=== PATIENT | female | born 1940 | race Caucasian/White ===

== ENCOUNTER 2016-09-29 21:27 | Emergency (ER) | payer MEDICARE, OTHER ==
--- NOTE | 2016-09-30 00:34 | ED CLINICAL REPORT ---
Clinical Report - Physicians/Mid Levels [facility] [address] [place] [place] [address] 09/29/2016 21:31 Patient: MAKSIM MAR Time Seen: 21:35; initial patient contact. Arrived- By ambulance. Historian- patient. HISTORY OF PRESENT ILLNESS Chief Complaint: BACK PAIN. Onset- about 2 days ago and it is still present. It was abrupt in onset and has been intermittent. Modifying factors- worsened by bending over and coughing. Not relieved by taking prescription medications. Not relieved by anything. It is described as being moderate in degree. The quality is noted to be aching. No radiation. No bladder dysfunction, bowel dysfunction, sensory loss or motor loss. Patient notes a recent injury (Surgery, Lumbar 2 days ago.). Patient denies injury to the head or neck. Similar symptoms previously: None. Recent medical care: The patient was seen recently and hospitalized (back surgery). REVIEW OF SYSTEMS No fever, chills, difficulty with urination, vomiting or diarrhea. She has had nausea. All systems otherwise negative, except as recorded above. PAST HISTORY Asthma. Hypertension. ADDITIONAL SURGERIES: Back Surgery. SOCIAL HISTORY Never smoker. No alcohol use or drug use. ADDITIONAL NOTES The nursing notes have been reviewed. PHYSICAL EXAM Appearance: Alert. No acute distress. Eyes: No pale conjunctivae. ENT: No pharyngeal erythema. (Dry mucus membranes). CVS: Normal heart rate and rhythm. Heart sounds normal. Respiratory: No respiratory distress. Breath sounds normal. Abdomen: No visible injury. Soft and nontender. Bowel sounds normal. Back: Mild soft tissue tenderness (incisional tenderness). Skin: Skin warm and dry. Normal skin color. (Incision w/out erythema or discharge). Neuro: Oriented X 3. No motor deficit. No sensory deficit. PROGRESS AND PROCEDURES Consult obtained from neurosurgery. call returned 00:10 Dr. Woodward. Gave pt Decadron intraoperatively which is likely causing the leukocytosis, no need for abx. Disposition: Discharged home in good and improved condition. Condition: good. CLINICAL IMPRESSION Acute lumbar back pain associated with degenerative disc disease of the lumbar spine. No radiculopathy or neurological deficit. INSTRUCTIONS Your Current Medications: CONTINUE TAKING THE FOLLOWING MEDICATIONS: Advair Diskus Inhalation. Benazepril HCl Oral : Tablet 40 mg. Doxazosin Mesylate Oral : Tablet 8 mg. Hydrochlorothiazide Oral : Tablet 25 mg. Ibuprofen Oral : Tablet 800 mg, 1 tablet 3x a day, prn. OxyCODONE HCl Oral : Tablet 5 mg. Sildenafil Citrate Oral : Tablet 20 mg. Prescription Medications: Hydrocodone/APAP 5mg / 325mg: take 1-2 orally every 6 hours as needed for pain. Dispense twenty (20). No refill. Follow-up: Follow up with your doctor as scheduled. Blood pressure screening was not performed during this visit because the patient has an active diagnosis of hypertension. (Electronically signed by Sin Anderson Dr. 09/30/2016 4:52)
--- NOTE | 2016-09-30 00:34 | ED NURSING NOTES ---
Clinical Report - Nurses [facility] [address] [place] [address] 09/29/2016 21:31 [id number] Triage time 21:30 Sep 29 2016. Acuity: LEVEL 2. Chief Complaint: BACK PAIN and (Surgery Sunday09/27/16). 21:50 09/29/16. SEPSIS SCREEN: Sepsis Screen. Negative (no infection suspected/documented). RENAN COMA SCORE: Fords Coma Scale: 15- eyes open spontaneously (4); best verbal response- oriented x 4 (5); best motor response- obeys commands (6). --21:50 Regi Villalba R.N. 21:33 09/29/16. BP: 128/50 (regular adult cuff) taken on the right arm. HR: 85. RR: 18. O2 saturation: 96% on nasal cannula at 2 liters/minute. Temp: 99.2 F (oral). Pain level now: 11/06. --21:50 Regi Villalba R.N. Weight: 88.9 kg stated. Height/Length: 67 inches Per Patient. BMI: 30.7. --21:35 Regi Villalba R.N. Medications OxyCODONE HCl Oral (Tablet 5 mg). --21:38 Regi Villalba R.N. Doxazosin Mesylate Oral (Tablet 8 mg). --21:39 Regi Villalba R.N. Advair Diskus Inhalation. --21:39 Regi Villalba R.N. Sildenafil Citrate Oral (Tablet 20 mg). --21:41 Regi Villalba R.N. Benazepril HCl Oral (Tablet 40 mg). --21:41 Regi Villalba R.N. Hydrochlorothiazide Oral (Tablet 25 mg). --21:41 Regi Villalba R.N. Ibuprofen Oral (Tablet 800 mg) 1 tablet, 3x a day as needed. --21:42 Villalba, Regi, R.N. Allergies Tramadol. --21:37 Regi Villalba R.N. History Arrived by EMS. Historian: EMS and patient. Accompanied by friend and (Mer). Primary physician (TEO Velasquez). Onset. (Back surgery on Sunday of this week). ( Patient had surgery Sunday, no issues with surgery, pain started "acting up" that night when she got home, pain continued to get worse, today she started getting lethargic, yesterday went pretty well per friend, today around 11AM patient started throwing. Friend says when patient has been up she has came close to falling). She has had weakness and trouble walking. No history of recent trauma. 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 PAST MEDICAL HX: Hypertension. SOCIAL HX: Never smoker. No alcohol use or drug use. No infectious disease exposure. ABUSE ASSESSMENT: No report of abuse. --21:50 Regi Villalba R.N. PROBLEMS: Asthma. Hypertension. --21:43 Regi Villalba R.N. ADDITIONAL SURGERIES: Back Surgery. --21:43 Regi Villalba R.N. Interventions ID band on patient. To treatment room. --21:50 Regi Villalba R.N. PHYSICAL ASSESSMENT 21:50 09/29/16. To room via stretcher. Patient gowned. GENERAL / NEURO / PSYCH: Alert. Oriented X 4. RESPIRATORY: Respirations not labored. Chest nontender. Breath sounds within normal limits. CVS: Normal heart rate and rhythm. Capillary refill less than 2 seconds. GI / : Abdomen soft and nontender. Bowel sounds within normal limits. BACK: Normal inspection of the neck and back. No neck or back tenderness. ROM of neck and back within normal limits. --21:50 Regi Villalba R.N. NURSING PROGRESS NOTES 21:50 09/29/16. The plan of care for this patient has been created. Monitoring of patient in place. Patient gowned. Head of bed elevated. Reassurance given. Two patient identifiers checked. Call light placed in reach. Side rails up x 2. Bed placed in lowest position. Brakes of bed on. Patient ready for evaluation- chart flagged and ED physician notified. --21:50 Regi Villalba R.N. 21:57 09/29/2016 Site #1 started prior to arrival by EMS via IV in the left antecubital space with an 18g angiocath (Started prior to coming in). --22:22 Regi Villalba R.N. 22:22 09/29/2016 Started bag #1 1000 mL IV Fluids IV NS (Saline); bolus of 1000 mL over 1 hour(s) via site #1 via IV pump. Allergies verified and confirmed 5 rights. IV patency established. IV site checked: no pain, redness, or swelling. IV flushed thoroughly pre- and post-medication administration. --22:22 Regi Villalba R.N. 22:22 09/29/2016 Toradol IVP 30 mg given over 1 minute(s) via site #1. Allergies verified and confirmed 5 rights. IV patency established. IV site checked: no pain, redness, or swelling. IV flushed thoroughly pre- and post-medication administration. IVP given by RN. --22:22 Regi Villalba R.N. 22:22 09/29/2016 Zofran (Ondansetron HCl) IVP 4 mg given over 1 minute(s) via site #1. Allergies verified and confirmed 5 rights. IV patency established. IV site checked: no pain, redness, or swelling. IV flushed thoroughly pre- and post-medication administration. IVP given by RN. --22:22 Regi Villalba R.N. ( Friend and son at bedside). --22:23 Regi Villalba R.N. 21:45 09/29/16. BP: 124/50 (regular adult cuff) taken on the right arm. RR: 18. O2 saturation: 97% on nasal cannula at 2 liters/minute. Pain level now: 11/06. --22:44 Regi Villalba R.N. 22:44 09/29/16. BP: 118/45 (regular adult cuff) taken on the right arm. RR: 18. O2 saturation: 96% on nasal cannula at 2 liters/minute. --22:44 Regi Villalba R.N. 22:15 09/29/16. BP: 112/45 (regular adult cuff) taken on the right arm. RR: 16. O2 saturation: 96% on nasal cannula at 2 liters/minute. --22:44 Regi Villalba R.N. 22:44 09/29/16. BP: 110/47 (regular adult cuff) taken on the right arm. RR: 16. O2 saturation: 95% on nasal cannula at 2 liters/minute. --22:45 Regi Villalba R.N. 22:47 09/29/16. HR: 86. RR: 16. O2 saturation: 96% on nasal cannula at 2 liters/minute. Pain level now: 10/07. --22:47 Regi Villalba R.N. 22:48 09/29/16. ( Patient says she is ready to go home now. Informed her Dr Anderson would like to look at surgical wound first. She states her understanding to this). --22:48 Regi Villalba R.N. 22:51 09/29/2016 Toradol IVP Response: no adverse reaction pain is improving. Symptoms have improved the patient feels better. --23:16 Regi Villalba R.N. 22:51 09/29/2016 Zofran IVP Response: no adverse reaction pain is gone now. Symptoms have improved the patient feels better. --23:16 Regi Villalba R.N. 23:00 09/29/16. ( Patients friend came out to speak with me privately stating the patient doesn't remember talking to physician when he was in there.). --23:00 Regi Villalba R.N. 23:01 09/29/16. ( Asked patient orientation questions, she is oriented x 4). --23:01 Regi Villalba R.N. Dressing changed. Applied clean occlusive dressing consisting of Tegaderm and telfa pad, following the application of antibiotic ointment (bacitracin). --23:16 Regi Villalba R.N. 23:16 09/29/2016 IV Fluids IV NS Discontinued: bag #1 completed. Total amount infused: 1000 mL. IV patency established. IV site checked: no pain, redness, or swelling. IV flushed thoroughly. --23:16 Regi Villalba R.N. 22:50 09/29/16. BP: 118/48 (regular adult cuff) taken on the right arm, while sitting. RR: 18. O2 saturation: 98% on nasal cannula at 2 liters/minute. --23:51 Regi Villalba R.N. 23:00 09/29/16. BP: 92/32 (regular adult cuff) taken on the right arm. RR: 18. O2 saturation: 98% on nasal cannula at 2 liters/minute. --23:51 Regi Villalba R.N. 23:15 09/29/16. BP: 108/47 (regular adult cuff) taken on the right arm. RR: 16. O2 saturation: 100% on nasal cannula at 2 liters/minute. --23:52 Regi Villalba R.N. 23:30 09/29/16. BP: 114/44 (regular adult cuff) taken on the right arm, while sitting. RR: 16. O2 saturation: 100% on nasal cannula at 2 liters/minute. --23:52 Regi Villalba R.N. 00:10 09/30/16. ( Will contact surgeon per Dr Wick request. Patient resting quietly, lights dimmed for sleep). --00:10 Regi Villalba R.N. 00:09 09/30/16. BP: 109/44 (regular adult cuff) taken on the right arm, while lying. HR: 74. RR: 18. O2 saturation: 100% on nasal cannula at 2 liters/minute. Temp: 99.1 F (oral). --00:10 Regi Villalba R.N. DISPOSITION / DISCHARGE 00:53 09/30/2016 Site #1 removed upon discharge. Bandaid applied. --01:08 Regi Villalba R.N. Departure time: 55Sep 30 2016. Condition at departure: improved. No learning barriers present. Discharge instructions provided and reviewed with the patient and family. Reviewed medication(s) side effects, precautions, dosing and course information. Prescription(s) given to the patient. Patient and family verbalized understanding. Written instructions provided in Amharic. The patient was discharged by the physician. She was discharged home and accompanied by family and resaw feeder. She left the Emergency Department ambulatory and via private vehicle. [employer] driving. --01:10 Regi Villalba R.N. 01:08 09/30/16. BP: 106/51 (regular adult cuff) taken on the right arm. HR: 73. RR: 16. O2 saturation: 100% on room air. Temp: 99.2 F. Pain level now: 07/07. --01:10 Regi Villalba R.N. Locked/Released at 09/30/2016 1:10 by Regi Villalba R.N.
--- NOTE | 2016-09-30 00:34 | ED ORDER SUMMARY ---
..... Patient: MAKSIM MAR OrderSheet [facility] VisitID: [id number] [address] [place] [address] 76y, F Registration Date/Time: 09/29/2016 ORDER SHEET Weight: 88.9 kg (stated) Allergies: Tramadol GENERAL ORDERS: CBC w Diff Urgent (22:00 09/29/2016 Sophie Monsivais) (Ack 22:16 AMcQuoid ER Tech1) (22:21 JSanders R.N.) CMP Urgent (22:00 09/29/2016 Sophie Monsivais) (Ack 22:16 AMcQuoid ER Tech1) (22:21 JSanders R.N.) UA-Culture if indicated Urgent (22:26 09/29/2016 JSanders R.N. verbal order read back to Sophie Monsivais) (22:26 JSanders R.N.) MEDICATION ORDERS: IV FLUIDS: IV NS : initial bolus none -, then 1000 mL/hr for X1 (NOW) (21:59 09/29/2016 Sophie Monsivais) (Ack 22:01 JSanders R.N.) (22:22 JSanders R.N.) Toradol IV 30 mg (NOW) (22:00 09/29/2016 Sophie Monsivais) (Ack 22:01 JSanders R.N.) (22:22 JSanders R.N.) Zofran IV 4 mg (NOW) (22:00 09/29/2016 Sophie Monsivais) (Ack 22:01 TORYanders R.N.) (22:22 JSanders R.N.) ORDER SHEET NOTES: [Electronically signed by Regi Villalba R.N. (01:10 09/30/2016)] [Electronically signed by Sin Anderson Dr. (04:52 09/30/2016)] [Electronically locked/signed by Regi Villalba R.N. (01:10 09/30/2016)]
--- NOTE | 2016-09-30 00:34 | ED ORDER SUMMARY ---
..... Patient: MAKSIM MAR OrderSheet [facility] VisitID: [id number] [address] [place] [address] 76y, F Registration Date/Time: 09/29/2016 ORDER SHEET Weight: 88.9 kg (stated) Allergies: Tramadol GENERAL ORDERS: CBC w Diff Urgent (22:00 09/29/2016 Sophie Monsivais) (Ack 22:16 AMcQuoid ER Tech1) (22:21 JSanders R.N.) CMP Urgent (22:00 09/29/2016 Sophie Monsivais) (Ack 22:16 AMcQuoid ER Tech1) (22:21 JSanders R.N.) UA-Culture if indicated Urgent (22:26 09/29/2016 JSanders R.N. verbal order read back to Sophie Monsivais) (22:26 JSanders R.N.) MEDICATION ORDERS: IV FLUIDS: IV NS : initial bolus none -, then 1000 mL/hr for X1 (NOW) (21:59 09/29/2016 Sophie Monsivais) (Ack 22:01 JSanders R.N.) (22:22 JSanders R.N.) Toradol IV 30 mg (NOW) (22:00 09/29/2016 Sophie Monsivais) (Ack 22:01 JSanders R.N.) (22:22 JSanders R.N.) Zofran IV 4 mg (NOW) (22:00 09/29/2016 Sophie Monsivais) (Ack 22:01 TORYanders R.N.) (22:22 JSanders R.N.) ORDER SHEET NOTES: [Electronically signed by Regi Villalba R.N. (01:10 09/30/2016)] [Electronically signed by Sin Anderson Dr. (04:52 09/30/2016)] [Electronically locked/signed by Regi Villalba R.N. (01:10 09/30/2016)]
--- NOTE | 2016-09-30 00:34 | ED CLINICAL REPORT ---
Clinical Report - Physicians/Mid Levels [facility] [address] [place] [place] [address] 09/29/2016 21:31 Patient: MAKSIM MAR Time Seen: 21:35; initial patient contact. Arrived- By ambulance. Historian- patient. HISTORY OF PRESENT ILLNESS Chief Complaint: BACK PAIN. Onset- about 2 days ago and it is still present. It was abrupt in onset and has been intermittent. Modifying factors- worsened by bending over and coughing. Not relieved by taking prescription medications. Not relieved by anything. It is described as being moderate in degree. The quality is noted to be aching. No radiation. No bladder dysfunction, bowel dysfunction, sensory loss or motor loss. Patient notes a recent injury (Surgery, Lumbar 2 days ago.). Patient denies injury to the head or neck. Similar symptoms previously: None. Recent medical care: The patient was seen recently and hospitalized (back surgery). REVIEW OF SYSTEMS No fever, chills, difficulty with urination, vomiting or diarrhea. She has had nausea. All systems otherwise negative, except as recorded above. PAST HISTORY Asthma. Hypertension. ADDITIONAL SURGERIES: Back Surgery. SOCIAL HISTORY Never smoker. No alcohol use or drug use. ADDITIONAL NOTES The nursing notes have been reviewed. PHYSICAL EXAM Appearance: Alert. No acute distress. Eyes: No pale conjunctivae. ENT: No pharyngeal erythema. (Dry mucus membranes). CVS: Normal heart rate and rhythm. Heart sounds normal. Respiratory: No respiratory distress. Breath sounds normal. Abdomen: No visible injury. Soft and nontender. Bowel sounds normal. Back: Mild soft tissue tenderness (incisional tenderness). Skin: Skin warm and dry. Normal skin color. (Incision w/out erythema or discharge). Neuro: Oriented X 3. No motor deficit. No sensory deficit. PROGRESS AND PROCEDURES Consult obtained from neurosurgery. call returned 00:10 Dr. Woodward. Gave pt Decadron intraoperatively which is likely causing the leukocytosis, no need for abx. Disposition: Discharged home in good and improved condition. Condition: good. CLINICAL IMPRESSION Acute lumbar back pain associated with degenerative disc disease of the lumbar spine. No radiculopathy or neurological deficit. INSTRUCTIONS Your Current Medications: CONTINUE TAKING THE FOLLOWING MEDICATIONS: Advair Diskus Inhalation. Benazepril HCl Oral : Tablet 40 mg. Doxazosin Mesylate Oral : Tablet 8 mg. Hydrochlorothiazide Oral : Tablet 25 mg. Ibuprofen Oral : Tablet 800 mg, 1 tablet 3x a day, prn. OxyCODONE HCl Oral : Tablet 5 mg. Sildenafil Citrate Oral : Tablet 20 mg. Prescription Medications: Hydrocodone/APAP 5mg / 325mg: take 1-2 orally every 6 hours as needed for pain. Dispense twenty (20). No refill. Follow-up: Follow up with your doctor as scheduled. Blood pressure screening was not performed during this visit because the patient has an active diagnosis of hypertension. (Electronically signed by Sin Anderson Dr. 09/30/2016 4:52)
--- NOTE | 2016-09-30 04:52 | ED MED RECONCILIATION SUMMARY ---
Patient: MAKSIM MAR Medication Reconciliation Report [facility] VisitID: [id number] [address] [place] [address] 76y, F Registration Date/Time: 09/29/2016 Weight: 88.9 kg Height/Length: 67 in. BMI: 30.7 ALLERGIES: Tramadol The patient's Home Medications are listed below: CONTINUE TAKING THE FOLLOWING MEDICATIONS: Advair Diskus Inhalation Benazepril HCl Oral (40 mg) Doxazosin Mesylate Oral (8 mg) Hydrochlorothiazide Oral (25 mg) Ibuprofen Oral (800 mg) 1 tablet, 3x a day OxyCODONE HCl Oral (5 mg) Sildenafil Citrate Oral (20 mg) The source(s) of the original Home Medication information: Not obtained. The following Medications were given to the patient in the Emergency Department: IV NS IV Fluids bolus 1000 mL over 1 hour(s), administered: 09/29/2016 10:22:00 PM Toradol [IVP] IVP 30 mg, administered: 09/29/2016 10:22:00 PM Zofran [IVP] IVP 4 mg, administered: 09/29/2016 10:22:00 PM The following Medications were prescribed to the patient: Hydrocodone/APAP 5mg / 325mg: take 1-2 orally every 6 hours as needed for pain. Dispense twenty (20). No refill. -- Sin Anderson Dr.
--- NOTE | 2016-09-30 04:52 | ED MED RECONCILIATION SUMMARY ---
Patient: MAKSIM MAR Medication Reconciliation Report [facility] VisitID: [id number] [address] [place] [address] 76y, F Registration Date/Time: 09/29/2016 Weight: 88.9 kg Height/Length: 67 in. BMI: 30.7 ALLERGIES: Tramadol The patient's Home Medications are listed below: CONTINUE TAKING THE FOLLOWING MEDICATIONS: Advair Diskus Inhalation Benazepril HCl Oral (40 mg) Doxazosin Mesylate Oral (8 mg) Hydrochlorothiazide Oral (25 mg) Ibuprofen Oral (800 mg) 1 tablet, 3x a day OxyCODONE HCl Oral (5 mg) Sildenafil Citrate Oral (20 mg) The source(s) of the original Home Medication information: Not obtained. The following Medications were given to the patient in the Emergency Department: IV NS IV Fluids bolus 1000 mL over 1 hour(s), administered: 09/29/2016 10:22:00 PM Toradol [IVP] IVP 30 mg, administered: 09/29/2016 10:22:00 PM Zofran [IVP] IVP 4 mg, administered: 09/29/2016 10:22:00 PM The following Medications were prescribed to the patient: Hydrocodone/APAP 5mg / 325mg: take 1-2 orally every 6 hours as needed for pain. Dispense twenty (20). No refill. -- Sin Anderson Dr.
--- NOTE | 2016-09-30 04:52 | ED MAR SUMMARY ---
..... Medication Administration Record [facility] [address] [place] [address] Patient: MAKSIM MAR Visit ID: [id number] 76y, F Weight: 88.9 kg Height/Length: 67 in BMI: 30.7 ALLERGIES: Tramadol Start 22:22 09/29/2016 Regi Villalba R.N., Stop 23:16 09/29/2016 Regi Villalba R.N. Medication Administered: IV NS (SALINE), Dose: IV Fluids, Bolus: 1000 mL over 1 hour(s), Dispensed: 1000 mL bag, Site: #1 left AC. Medication Ordered: IV NS : initial bolus none -, then 1000 mL/hr for X1 (NOW). Given 22:09/29/2016 Regi Villalba R.N. Medication Administered: TORADOL [IVP], Dose: 30 mg IVP over 1 minute(s), Site: #1 left AC. Medication Ordered: Toradol IV 30 mg (NOW). Given 22:09/29/2016 Regi Villalba R.N. Medication Administered: ZOFRAN [IVP] (ONDANSETRON HCL), Dose: 4 mg IVP over 1 minute(s), Site: #1 left AC. Medication Ordered: Zofran IV 4 mg (NOW).
--- NOTE | 2016-09-30 04:52 | ED DISCHARGE INSTRUCTIONS ---
Patient: MAKSIM MAR General Instructions [facility] VisitID: [id number] [address] [place] [address] 76y, F Registration Date/Time: 09/29/2016 Acute lumbar back pain associated with degenerative disc disease of the lumbar spine. No radiculopathy or neurological deficit. INSTRUCTIONS Your Current Medications: CONTINUE TAKING THE FOLLOWING MEDICATIONS: Advair Diskus Inhalation. Benazepril HCl Oral : Tablet 40 mg. Doxazosin Mesylate Oral : Tablet 8 mg. Hydrochlorothiazide Oral : Tablet 25 mg. Ibuprofen Oral : Tablet 800 mg, 1 tablet 3x a day, prn. OxyCODONE HCl Oral : Tablet 5 mg. Sildenafil Citrate Oral : Tablet 20 mg. Prescription Medications: Hydrocodone/APAP 5mg / 325mg: take 1-2 orally every 6 hours as needed for pain. Dispense twenty (20). No refill. Follow-up: Follow up with your doctor as scheduled. Blood pressure screening was not performed during this visit because the patient has an active diagnosis of hypertension. ADDITIONAL INFORMATION Back Pain [Acute Or Chronic] Back pain is usually caused by an injury to the muscles or ligaments of the spine. Sometimes the disks that separate each bone in the spine may bulge and cause pain by pressing on a nearby nerve. Back pain may also appear after a sudden twisting/bending force (such as in a car accident), after a simple awkward movement, or lifting something heavy with poor body positioning. In either case, muscle spasm is often present and adds to the pain. Acute back pain usually gets better in one to two weeks. Back pain related to disk disease, arthritis in the spinal joints or spinal stenosis (narrowing of the spinal canal) can become chronic and last for months or years. Unless you had a physical injury (for example, a car accident or fall) X-rays are usually not ordered for the initial evaluation of back pain. If pain continues and does not respond to medical treatment, x-rays and other tests may be performed at a later time. Home Care: You may need to stay in bed the first few days. But, as soon as possible, begin sitting or walking to avoid problems with prolonged bed rest (muscle weakness, worsening back stiffness and pain, blood clots in the legs). When in bed, try to find a position of comfort. A firm mattress is best. Try lying flat on your back with pillows under your knees. You can also try lying on your side with your knees bent up towards your chest and a pillow between your knees. Avoid prolonged sitting. This puts more stress on the lower back than standing or walking. During the first two days after injury, apply an ICE PACK to the painful area for 20 minutes every 2-4 hours. This will reduce swelling and pain. HEAT (hot shower, hot bath or heating pad) works well for muscle spasm. You can start with ice, then switch to heat after two days. Some patients feel best alternating ice and heat treatments. Use the one method that feels the best to you. You may use acetaminophen (Tylenol) or ibuprofen (Motrin, Advil) to control pain, unless another pain medicine was prescribed. [NOTE: If you have chronic liver or kidney disease or ever had a stomach ulcer or GI bleeding, talk with your doctor before using these medicines.] Be aware of safe lifting methods and do not lift anything over 15 pounds until all the pain is gone. Follow Up with your doctor or this facility if your symptoms do not start to improve after one week. Physical therapy may be needed. [NOTE: If X-rays were taken, they will be reviewed by a radiologist. You will be notified of any new findings that may affect your care.] Get Prompt Medical Attention if any of the following occur: Pain becomes worse or spreads to your legs Weakness or numbness in one or both legs Loss of bowel or bladder control Numbness in the groin or genital area Hydrocodone Bitartrate, Acetaminophen Oral tablet What is this medicine? ACETAMINOPHEN; HYDROCODONE (a set a MASOOD daxa fen; neisha droe KOE done) is a pain reliever. It is used to treat mild to moderate pain. How should I use this medicine? Take this medicine by mouth. Swallow it with a full glass of water. Follow the directions on the prescription label. If the medicine upsets your stomach, take the medicine with food or milk. Do not take more than you are told to take. Talk to your greens tier regarding the use of this medicine in children. This medicine is not approved for use in children. What side effects may I notice from receiving this medicine? Side effects that you should report to your doctor or health gericare aide as soon as possible: allergic reactions like skin rash, itching or hives, swelling of the face, lips, or tongue breathing problems confusion feeling faint or lightheaded, falls stomach pain yellowing of the eyes or skin Side effects that usually do not require medical attention (report to your doctor or health gericare aide if they continue or are bothersome): nausea, vomiting stomach upset What may interact with this medicine? alcohol antihistamines isoniazid medicines for depression, anxiety, or psychotic disturbances medicines for sleep muscle relaxants naltrexone narcotic medicines (opiates) for pain phenobarbital ritonavir tramadol What if I miss a dose? If you miss a dose, take it as soon as you can. If it is almost time for your next dose, take only that dose. Do not take double or extra doses. Where should I keep my medicine? Keep out of the reach of children. This medicine can be abused. Keep your medicine in a safe place to protect it from theft. Do not share this medicine with anyone. Selling or giving away this medicine is dangerous and against the law. Store at room temperature between 15 and 30 degrees C (59 and 86 degrees F). Protect from light. Keep container tightly closed. Throw away any unused medicine after the expiration date. Discard unused medicine and used packaging carefully. Pets and children can be harmed if they find used or lost packages. What should I tell my health care provider before I take this medicine? They need to know if you have any of these conditions: brain tumor Crohn's disease, inflammatory bowel disease, or ulcerative colitis drink more than 3 alcohol-containing drinks per day drug abuse or addiction head injury heart or circulation problems kidney disease or problems going to the bathroom liver disease lung disease, asthma, or breathing problems an unusual or allergic reaction to acetaminophen, hydrocodone, other opioid analgesics, other medicines, foods, dyes, or preservatives or trying to get breast-feeding What should I watch for while using this medicine? Tell your doctor or health gericare aide if your pain does not go away, if it gets worse, or if you have new or a different type of pain. You may develop tolerance to the medicine. Tolerance means that you will need a higher dose of the medicine for pain relief. Tolerance is normal and is expected if you take the medicine for a long time. Do not suddenly stop taking your medicine because you may develop a severe reaction. Your body becomes used to the medicine. This does NOT mean you are addicted. Addiction is a behavior related to getting and using a drug for a non-medical reason. If you have pain, you have a medical reason to take pain medicine. Your doctor will tell you how much medicine to take. If your doctor wants you to stop the medicine, the dose will be slowly lowered over time to avoid any side effects. You may get drowsy or dizzy when you first start taking the medicine or change doses. Do not drive, use machinery, or do anything that may be dangerous until you know how the medicine affects you. Stand or sit up slowly. There are different types of narcotic medicines (opiates) for pain. If you take more than one type at the same time, you may have more side effects. Give your health care provider a list of all medicines you use. Your doctor will tell you how much medicine to take. Do not take more medicine than directed. Call emergency for help if you have problems breathing. The medicine will cause constipation. Try to have a bowel movement at least every 2 to 3 days. If you do not have a bowel movement for 3 days, call your doctor or health gericare aide. Too much acetaminophen can be very dangerous. Do not take Tylenol (acetaminophen) or medicines that contain acetaminophen with this medicine. Many non-prescription medicines contain acetaminophen. Always read the labels carefully. You have been given the following additional information: Back Pain (Acute Or Chronic) Hydrocodone Bitartrate, Acetaminophen Oral tablet (Electronically signed by Sin Anderson Dr. 09/30/2016 4:52)
--- NOTE | 2016-09-30 04:52 | ED MAR SUMMARY ---
..... Medication Administration Record [facility] [address] [place] [address] Patient: MAKSIM MAR Visit ID: [id number] 76y, F Weight: 88.9 kg Height/Length: 67 in BMI: 30.7 ALLERGIES: Tramadol Start 22:22 09/29/2016 Regi Villalba R.N., Stop 23:16 09/29/2016 Regi Villalba R.N. Medication Administered: IV NS (SALINE), Dose: IV Fluids, Bolus: 1000 mL over 1 hour(s), Dispensed: 1000 mL bag, Site: #1 left AC. Medication Ordered: IV NS : initial bolus none -, then 1000 mL/hr for X1 (NOW). Given 22:09/29/2016 Regi Villalba R.N. Medication Administered: TORADOL [IVP], Dose: 30 mg IVP over 1 minute(s), Site: #1 left AC. Medication Ordered: Toradol IV 30 mg (NOW). Given 22:09/29/2016 Regi Villalba R.N. Medication Administered: ZOFRAN [IVP] (ONDANSETRON HCL), Dose: 4 mg IVP over 1 minute(s), Site: #1 left AC. Medication Ordered: Zofran IV 4 mg (NOW).
== END 2016-09-30 00:56 | disposition home or self-care (01) ==
LOC: ED SRH 21:27
DX: M51.36 Other intervertebral disc degeneration, lumbar region (principal); I10 Essential (primary) hypertension; J45.909 Unspecified asthma, uncomplicated; Z79.51 Long term (current) use of inhaled steroids; Z79.899 Other long term (current) drug therapy; Z79.1 Long term (current) use of non-steroidal anti-inflammatories (NSAID)
CPT/HCPCS: 90004; 90100; 95059

== ENCOUNTER 2016-10-10 18:15 | Emergency (ER) | payer MEDICARE, OTHER ==
--- NOTE | 2016-10-10 18:45 | ED CLINICAL REPORT ---
Clinical Report - Physicians/Mid Levels [facility] [address] [place] [address] 10/10/2016 18:15 Patient: MAKSIM MAR Time Seen: 18:28; upon arrival, initial patient contact, initial documentation, patient care assumed. Arrived- By private vehicle. Historian- patient and family. HISTORY OF PRESENT ILLNESS Chief Complaint: SKIN RASH and ITCHING. This started about 2 weeks ago and is still present but is improving. The patient has had a skin rash and itching but not had swelling or trouble swallowing. No difficulty breathing. No cause has been identified (thinks the sutures are what is causing her to itch and to have reaction). The patient was not assessed by EMS prior to arrival. The patient self administered medication prior to arrival including Benadryl (50mg at 1700). Similar symptoms previously: None. Recent medical care: The patient was seen recently in the office. ( had back surgery on 09/27/16, had f/u x2 days ago, surgeon gave her steroid creem to use on the itchy spots, no better). REVIEW OF SYSTEMS No sore throat or chest pain. All systems otherwise negative, except as recorded above. PAST HISTORY See nurses notes. PROBLEMS: Back Pain. Asthma. Hypertension. --18:27 Jennifer Medina R.N. ADDITIONAL SURGERIES: Back Surgery. --18:27 Jennifer Medina R.N. SOCIAL HISTORY Never smoker. No alcohol use or drug use. No recent travel. Is a local resident. FAMILY HISTORY Negative. ADDITIONAL NOTES The nursing notes have been reviewed with agreement regarding the chief complaint, HPI, ROS, PMH and patient medications and allergies. PHYSICAL EXAM Vital Signs: 10/10/2016 18:22 BP: 137/64. HR: 78. RR: 18. O2 saturation: 95%. Temp: 97.7 F. Pain level now: 10/10. Have been reviewed as normal and appear to be correct. Appearance: Alert. Oriented X3. No acute distress. Head and Neck: Normal external inspection. Eyes: Pupils equal, round and reactive to light. ENT: Nose normal. Pharynx normal. Voice normal. Neck: Neck supple. CVS: Normal heart rate and rhythm. Heart sounds normal. Respiratory: No respiratory distress. Breath sounds normal. Skin: Skin warm and dry. Normal skin turgor. Extremities: Normal external inspection. Extremities nontender. Skin: Abnormal skin color. Rash present. No urticaria. (? rash vs all excoriations noted to R inner thigh, excoriations noted on other thigh, R lower leg and L forearm). Neuro: Oriented X 3. No motor deficit. No sensory deficit. PROGRESS AND PROCEDURES Course of Care: 18:28 10/10/16. pt has brad for frequent large quantity of narcs, last rx 10/02 hydrocodone 10mg #112, see report for full details surgical site to back healing well, no s/s of infection, no erythema, no warmth, no swelling, no dc, wound edges approximating well without issues, some epidermal stripping noted from tape or bandage that was on, which is about 6 inches above and sides of surgical site. Patient and family counseled in person regarding the patient's stable condition and diagnosis. Differential Diagnosis: Other possible considerations: anaphylaxis, angioedema, urticaria, hives, allergic reaction, pruritis, med side effect. Above considerations are based on history and physical exam. Differential diagnosis was discussed with patient. Disposition: Discharged home in good and improved condition (18:45). Condition: good and stable. CLINICAL IMPRESSION Generalized pruritus of undetermined cause. INSTRUCTIONS Warnings: GENERAL WARNINGS: Return or contact your physician immediately if your condition worsens or changes unexpectedly, if not improving as expected, or if other problems arise. Specifically return if problem worsens. Prescription Medications: Sofy 180 mg tablets: take 1 orally daily for 10 days. Dispense ten (10). No refills. Atarax 50 mg: Take 1 orally every 6 hours as needed for itching. Dispense twenty (20). No refills. Substitution is permissible. Prednisone 20 mg: take 3 orally every day for 10 days. Dispense sufficient quantity. No refills. Pepcid 40 mg RPD: take 1 orally at bedtime for 10 days. Dispense ten (10). No refills. Follow-up: Follow up with your doctor in about two days even if well. Call for an appointment. Summary of care provided to patient. Understanding of the discharge instructions verbalized by patient. (Electronically signed by Stephanie Moe A.R.N.P. 10/10/2016 21:37)
--- NOTE | 2016-10-10 18:45 | ED NURSING NOTES ---
Clinical Report - Nurses [facility] [address] [place] [address] 10/10/2016 18:15 Patient: MAKSIM MAR TRIAGE Triage time 18:22. Chief Complaint: SKIN RASH. --18:29 Jennifer Medina R.N. 18:22 10/10/16. BP: 137/64. HR: 78. RR: 18. O2 saturation: 95%. Temp: 97.7 F (oral). Pain level now: 02/06. --18:29 Jennifer Medina R.N. SEPSIS SCREEN: Sepsis Screen. Negative (no infection suspected/documented). --18:30 Jennifer Medina R.N. Weight: 92.9 kg stated. Height/Length: 67 inches Per Patient. BMI: 32.1. --18:29 Jennifer Medina R.N. Medications Advair Diskus Inhalation. Benazepril HCl Oral (Tablet 40 mg). Doxazosin Mesylate Oral (Tablet 8 mg). Hydrochlorothiazide Oral (Tablet 25 mg). Ibuprofen Oral (Tablet 800 mg) 1 tablet, 3x a day as needed. OxyCODONE HCl Oral (Tablet 5 mg). Sildenafil Citrate Oral (Tablet 20 mg). --18:26 Jennifer Medina R.N. Vicodin Oral 10 mg, PRN. --18:31 Jennifer Medina R.N. Allergies No Known Drug Allergy. --18:26 Jennifer Medina R.N. History Arrived by private vehicle. Historian: patient. Accompanied by friend. Primary physician (French Echevarria ([facility] ( Itching all over body. Believes it is from the "glue" that was used to close the incision when she had back surgery on 09/27/16). Reported as generalized in location. Symptoms still present (about 4 days ago). It is described as itchy and painful. She has had difficulty breathing (2 days ago). Treatment CHAINER: Took Benadryl. PAST MEDICAL HX: Immunizations: up-to-date. Denies current . SOCIAL HX: Never smoker. No alcohol use or drug use. No infectious disease exposure. SELF HARM ASSESSMENT: A self harm assessment was performed. The patient answered "no" to the question "Do you have thoughts of harming or killing yourself?". FALL RISK ASSESSMENT: Fall risk assessment completed. No fall risk identified. NUTRITIONAL RISK ASSESSMENT: The nutritional risk assessment revealed no deficiencies. FUNCTIONAL ASSESSMENT: Functional assessment: no impairments noted. LEARNING NEEDS ASSESSMENT: The learning needs assessment revealed no barriers. ABUSE ASSESSMENT: Abuse assessment: ("yes") The patient was asked "Do you feel safe in your home?". SKIN INTEGRITY ASSESSMENT: Skin integrity risk assessment completed. No skin integrity risk identified. --18:29 Jennifer Medina R.N. PROBLEMS: Back Pain. Asthma. Hypertension. --18:27 Jennifer Medina R.N. ADDITIONAL SURGERIES: Back Surgery. --18:27 Jennifer Medina R.N. Interventions ID band on patient. --18:29 Jennifer Medina R.N. PHYSICAL ASSESSMENT Ambulatory to room. GENERAL / NEURO / PSYCH: Alert. The patient does not appear to be in acute distress. Oriented X 4. HEENT: Pupils equal, round and reactive to light. RESPIRATORY: Respirations not labored. GI / : Abdomen nontender. SKIN: Skin is intact, warm and dry. --18:30 Jennifer Medina R.N. NURSING PROGRESS NOTES Reassurance given. Two patient identifiers checked. Call light placed in reach. Bed placed in lowest position. Brakes of bed on. Patient ready for evaluation- VP RHEUMATOLOGY notified. --18:30 Jennifer Medina R.N. 18:51 10/10/2016 Decadron (Dexamethasone Sodium Phosphate) IM 8 mg given. Given in the right gluteus jeff. Allergies verified and confirmed 5 rights. --18:51 Jennifer Medina R.N. DISPOSITION / DISCHARGE Departure time: 19:10. Condition at departure: unchanged. Discharge instructions provided and reviewed with the patient. Reviewed medication(s) side effects, precautions, dosing and course information. Prescription(s) given to the patient. Patient verbalized understanding. Written instructions provided in Peruvian. The patient was discharged by the nurse practitioner. She was discharged home and accompanied by CAREGIVER. She left the Emergency Department ambulatory and via private vehicle. Driving (CAREGIVER). --19:10 Jennifer Medina R.N. 19:08 10/10/16. BP: 136/60. HR: 75. RR: 16. O2 saturation: 95%. Temp: 97.7 F (oral). Pain level now: 01/07. --19:10 Jennifer Medina R.N. Locked/Released at 10/10/2016 19:11 by Jennifer Medina R.N.
--- NOTE | 2016-10-10 18:45 | ED ORDER SUMMARY ---
..... Patient: MAKSIM MAR OrderSheet [facility] VisitID: [id number] [address] [place] [address] 76y, F Registration Date/Time: 10/10/2016 ORDER SHEET Weight: 92.9 kg (stated) Allergies: No Known Drug Allergy GENERAL ORDERS: MEDICATION ORDERS: Decadron IM 8 mg (NOW) (18:39 10/10/2016 Skylar A.R.N.P.) (18:51 Sharmin R.N.) IV FLUIDS: ORDER SHEET NOTES: [Electronically signed by Jennifer Medina R.N. (19:11 10/10/2016)] [Electronically signed by Stephanie MoeR.N.PRyan (21:37 10/10/2016)] [Electronically locked/signed by Jennifer Medina R.N. (19:11 10/10/2016)]
--- NOTE | 2016-10-10 18:45 | ED ORDER SUMMARY ---
..... Patient: MAKSIM MAR OrderSheet [facility] VisitID: [id number] [address] [place] [address] 76y, F Registration Date/Time: 10/10/2016 ORDER SHEET Weight: 92.9 kg (stated) Allergies: No Known Drug Allergy GENERAL ORDERS: MEDICATION ORDERS: Decadron IM 8 mg (NOW) (18:39 10/10/2016 Skylar A.R.N.P.) (18:51 Sharmin R.N.) IV FLUIDS: ORDER SHEET NOTES: [Electronically signed by Jennifer Medina R.N. (19:11 10/10/2016)] [Electronically signed by Stephanie MoeR.N.PRyan (21:37 10/10/2016)] [Electronically locked/signed by Jennifer Medina R.N. (19:11 10/10/2016)]
--- NOTE | 2016-10-10 18:45 | ED NURSING NOTES ---
Clinical Report - Nurses [facility] [address] [place] [address] 10/10/2016 18:15 Patient: MAKSIM MAR TRIAGE Triage time 18:22. Chief Complaint: SKIN RASH. --18:29 Jennifer Medina R.N. 18:22 10/10/16. BP: 137/64. HR: 78. RR: 18. O2 saturation: 95%. Temp: 97.7 F (oral). Pain level now: 02/06. --18:29 Jennifer Medina R.N. SEPSIS SCREEN: Sepsis Screen. Negative (no infection suspected/documented). --18:30 Jennifer Medina R.N. Weight: 92.9 kg stated. Height/Length: 67 inches Per Patient. BMI: 32.1. --18:29 Jennifer Medina R.N. Medications Advair Diskus Inhalation. Benazepril HCl Oral (Tablet 40 mg). Doxazosin Mesylate Oral (Tablet 8 mg). Hydrochlorothiazide Oral (Tablet 25 mg). Ibuprofen Oral (Tablet 800 mg) 1 tablet, 3x a day as needed. OxyCODONE HCl Oral (Tablet 5 mg). Sildenafil Citrate Oral (Tablet 20 mg). --18:26 Jennifer Medina R.N. Vicodin Oral 10 mg, PRN. --18:31 Jennifer Medina R.N. Allergies No Known Drug Allergy. --18:26 Jennifer Medina R.N. History Arrived by private vehicle. Historian: patient. Accompanied by friend. Primary physician (French Echevarria ([facility])). ( Itching all over body. Believes it is from the "glue" that was used to close the incision when she had back surgery on 09/27/16). Reported as generalized in location. Symptoms still present (about 4 days ago). It is described as itchy and painful. She has had difficulty breathing (2 days ago). 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 PAST MEDICAL HX: Immunizations: up-to-date. Denies current . SOCIAL HX: Never smoker. No alcohol use or drug use. No infectious disease exposure. SELF HARM ASSESSMENT: A self harm assessment was performed. The patient answered "no" to the question "Do you have thoughts of harming or killing yourself?". FALL RISK ASSESSMENT: Fall risk assessment completed. No fall risk identified. NUTRITIONAL RISK ASSESSMENT: The nutritional risk assessment revealed no deficiencies. FUNCTIONAL ASSESSMENT: Functional assessment: no impairments noted. LEARNING NEEDS ASSESSMENT: The learning needs assessment revealed no barriers. ABUSE ASSESSMENT: Abuse assessment: ("yes") The patient was asked "Do you feel safe in your home?". SKIN INTEGRITY ASSESSMENT: Skin integrity risk assessment completed. No skin integrity risk identified. --18:29 Jennifer Medina R.N. PROBLEMS: Back Pain. Asthma. Hypertension. --18:27 Jennifer Medina R.N. ADDITIONAL SURGERIES: Back Surgery. --18:27 Jennifer Medina R.N. Interventions ID band on patient. --18:29 Jennifer Medina R.N. PHYSICAL ASSESSMENT Ambulatory to room. GENERAL / NEURO / PSYCH: Alert. The patient does not appear to be in acute distress. Oriented X 4. HEENT: Pupils equal, round and reactive to light. RESPIRATORY: Respirations not labored. GI / : Abdomen nontender. SKIN: Skin is intact, warm and dry. --18:30 Jennifer Medina R.N. NURSING PROGRESS NOTES Reassurance given. Two patient identifiers checked. Call light placed in reach. Bed placed in lowest position. Brakes of bed on. Patient ready for evaluation- PAPERHANGER notified. --18:30 Jennifer Medina R.N. 18:51 10/10/2016 Decadron (Dexamethasone Sodium Phosphate) IM 8 mg given. Given in the right gluteus jeff. Allergies verified and confirmed 5 rights. --18:51 Jennifer Medina R.N. DISPOSITION / DISCHARGE Departure time: 19:10. Condition at departure: unchanged. Discharge instructions provided and reviewed with the patient. Reviewed medication(s) side effects, precautions, dosing and course information. Prescription(s) given to the patient. Patient verbalized understanding. Written instructions provided in [place]ian. The patient was discharged by the nurse practitioner. She was discharged home and accompanied by CAREGIVER. She left the Emergency Department ambulatory and via private vehicle. Driving (CAREGIVER). --19:10 Jennifer Medina R.N. 19:08 10/10/16. BP: 136/60. HR: 75. RR: 16. O2 saturation: 95%. Temp: 97.7 F (oral). Pain level now: 01/07. --19:10 Jennifer Medina R.N. Locked/Released at 10/10/2016 19:11 by Jennifer Medina R.N.
--- NOTE | 2016-10-10 21:37 | ED DISCHARGE INSTRUCTIONS ---
Patient: MAKSIM MAR General Instructions [facility] VisitID: [id number] [address] [place] [address] 76y, F Registration Date/Time: 10/10/2016 Generalized pruritus of undetermined cause. INSTRUCTIONS Warnings: GENERAL WARNINGS: Return or contact your physician immediately if your condition worsens or changes unexpectedly, if not improving as expected, or if other problems arise. Specifically return if problem worsens. Prescription Medications: Sofy 180 mg tablets: take 1 orally daily for 10 days. Dispense ten (10). No refills. Atarax 50 mg: Take 1 orally every 6 hours as needed for itching. Dispense twenty (20). No refills. Substitution is permissible. Prednisone 20 mg: take 3 orally every day for 10 days. Dispense sufficient quantity. No refills. Pepcid 40 mg RPD: take 1 orally at bedtime for 10 days. Dispense ten (10). No refills. Follow-up: Follow up with your doctor in about two days even if well. Call for an appointment. Summary of care provided to patient. Understanding of the discharge instructions verbalized by patient. ADDITIONAL INFORMATION Allergic Reaction,Generalized [Other] You are having an allergic reaction. This may cause an itchy rash, dizziness, fainting, trouble breathing or swallowing, and swelling of the face or other parts of the body. This can be caused by exposure to something in your surroundings that you have become sensitive to. This could be due to medicine or food. This could also be due to something you put on your skin or in your hair or something in the air. Often it is not possible to find out exactly what has caused your reaction. The goal of today's treatment is to relieve symptoms. The rash will usually fade over several days, but can sometimes last up to two weeks. Home Care: 1) If you know what you are allergic to, avoid it because future reactions could be worse than this one. 2) Avoid tight clothing and anything that heats up your skin (hot showers/baths, direct sunlight) since heat will make itching worse. 3) An ice pack will relieve local areas of intense itching and redness. Lanacaine cream or Solarcaine spray (or other product containing "benzocaine", available without a prescription) will reduce the itching. 4) Oral Benadryl (diphenhydramine) is an antihistamine available at drug and grocery stores. Unless a prescription antihistamine was given, Benadryl may be used to reduce itching if large areas of the skin are involved. Use lower doses during the daytime and higher doses at bedtime since the drug may make you sleepy. [NOTE: Do not use Benadryl if you have glaucoma or if you are a man with trouble urinating due to an enlarged prostate.] Claritin (loratidine) is an antihistamine that causes less drowsiness and is a good alternative for daytime use. Follow Up Follow Up with your doctor or this facility in two days if your symptoms do not continue to improve. If you had a severe reaction today, or if you have had several mild-moderate allergic reactions in the past, ask your doctor about allergy testing to find out what you are allergic to. If your reaction included dizziness, fainting or trouble breathing or swallowing, ask your doctor about carrying an Allergy Kit (injectable epinephrine) for home use. Get Prompt Medical Attention if any of the following occur: -- Trouble breathing or swallowing -- New or worse swelling in the face, eyelids, lips, mouth, tongue or throat -- Dizziness, weakness or fainting Fexofenadine Hydrochloride Oral tablet What is this medicine? FEXOFENADINE (fex oh FEN a simeon) is an antihistamine. This medicine is used to treat or prevent symptoms of allergies. It is also used to help reduce itchy skin rash and hives. How should I use this medicine? Take this medicine by mouth with a full glass of water. Follow the directions on the prescription label. You may take this medicine with food or on an empty stomach. Take your medicine at regular intervals. Do not take it more often than directed. You may need to take this medicine for several days before your symptoms improve. Talk to your director social service regarding the use of this medicine in children. While this drug may be prescribed for children as young as 6 years old for selected conditions, precautions do apply. What side effects may I notice from receiving this medicine? Side effects that you should report to your doctor or health medicare interviewer as soon as possible: allergic reactions like skin rash, itching or hives, swelling of the face, lips, or tongue breathing problems chest pain fast heartbeat infection or fever Side effects that usually do not require medical attention (report to your doctor or health medicare interviewer if they continue or are bothersome): cough drowsiness dry or irritated nose, mouth, or throat headache menstrual changes pain stomach upset, nausea What may interact with this medicine? antacids erythromycin grapefruit, apple, or orange juice ketoconazole magnesium-containing products What if I miss a dose? If you miss a dose, take it as soon as you can. If it is almost time for your next dose, take only that dose. Do not take double or extra doses. Where should I keep my medicine? Keep out of the reach of children. Store at room temperature between 20 and 25 degrees C (68 and 77degrees F). Protect from moisture. Throw away any unused medicine after the expiration date. What should I tell my health care provider before I take this medicine? They need to know if you have any of these conditions: kidney disease an unusual or allergic reaction to fexofenadine, terfenadine, other medicines, foods, dyes, or preservatives or trying to get breast-feeding What should I watch for while using this medicine? Visit your doctor or health medicare interviewer for regular checks on your health. Tell your doctor or healthcare professional if your symptoms do not start to get better or if they get worse. Hydroxyzine Pamoate Oral capsule What is this medicine? HYDROXYZINE (neisha DROX i zeen) is an antihistamine. This medicine is used to treat allergy symptoms. It is also used to treat anxiety and tension. This medicine can be used with other medicines to induce sleep before surgery. How should I use this medicine? Take this medicine by mouth with a full glass of water. Follow the directions on the prescription label. You may take this medicine with food or on an empty stomach. Take your medicine at regular intervals. Do not take your medicine more often than directed. Talk to your director social service regarding the use of this medicine in children. Special care may be needed. While this drug may be prescribed for children as young as 6 years of age for selected conditions, precautions do apply. Patients over 65 years old may have a stronger reaction and need a smaller dose. What side effects may I notice from receiving this medicine? Side effects that you should report to your doctor or health medicare interviewer as soon as possible: fast or irregular heartbeat difficulty passing urine seizures slurred speech or confusion tremor Side effects that usually do not require medical attention (report to your doctor or health medicare interviewer if they continue or are bothersome): constipation drowsiness fatigue headache stomach upset What may interact with this medicine? alcohol barbiturate medicines for sleep or seizures medicines for colds, allergies medicines for depression, anxiety, or emotional disturbances medicines for pain medicines for sleep muscle relaxants What if I miss a dose? If you miss a dose, take it as soon as you can. If it is almost time for your next dose, take only that dose. Do not take double or extra doses. Where should I keep my medicine? Keep out of the reach of children. Store at room temperature between 15 and 30 degrees C (59 and 86 degrees F). Keep container tightly closed. Throw away any unused medicine after the expiration date. What should I tell my health care provider before I take this medicine? They need to know if you have any of these conditions: any chronic illness difficulty passing urine glaucoma heart disease kidney disease liver disease lung disease an unusual or allergic reaction to hydroxyzine, cetirizine, other medicines, foods, dyes, or preservatives or trying to get breast-feeding What should I watch for while using this medicine? Tell your doctor or health medicare interviewer if your symptoms do not improve. You may get drowsy or dizzy. Do not drive, use machinery, or do anything that needs mental alertness until you know how this medicine affects you. Do not stand or sit up quickly, especially if you are an older patient. This reduces the risk of dizzy or fainting spells. Alcohol may interfere with the effect of this medicine. Avoid alcoholic drinks. Your mouth may get dry. Chewing sugarless gum or sucking hard candy, and drinking plenty of water may help. Contact your doctor if the problem does not go away or is severe. This medicine may cause dry eyes and blurred vision. If you wear contact lenses you may feel some discomfort. Lubricating drops may help. See your eye doctor if the problem does not go away or is severe. If you are receiving skin tests for allergies, tell your doctor you are using this medicine. Prednisone Oral tablet What is this medicine? PREDNISONE (PRED ni sone) is a corticosteroid. It is commonly used to treat inflammation of the skin, joints, lungs, and other organs. Common conditions treated include asthma, allergies, and arthritis. It is also used for other conditions, such as blood disorders and diseases of the adrenal glands. How should I use this medicine? Take this medicine by mouth with a glass of water. Follow the directions on the prescription label. Take this medicine with food. If you are taking this medicine once a day, take it in the morning. Do not take more medicine than you are told to take. Do not suddenly stop taking your medicine because you may develop a severe reaction. Your doctor will tell you how much medicine to take. If your doctor wants you to stop the medicine, the dose may be slowly lowered over time to avoid any side effects. Talk to your director social service regarding the use of this medicine in children. Special care may be needed. What side effects may I notice from receiving this medicine? Side effects that you should report to your doctor or health medicare interviewer as soon as possible: allergic reactions like skin rash, itching or hives, swelling of the face, lips, or tongue changes in emotions or moods changes in vision depressed mood eye pain fever or chills, cough, sore throat, pain or difficulty passing urine increased thirst swelling of ankles, feet Side effects that usually do not require medical attention (report to your doctor or health medicare interviewer if they continue or are bothersome): confusion, excitement, restlessness headache nausea, vomiting skin problems, acne, thin and shiny skin trouble sleeping weight gain What may interact with this medicine? Do not take this medicine with any of the following medications: metyrapone mifepristone This medicine may also interact with the following medications: aminoglutethimide amphotericin B aspirin and aspirin-like medicines barbiturates certain medicines for diabetes, like glipizide or glyburide cholestyramine cholinesterase inhibitors cyclosporine digoxin diuretics ephedrine female hormones, like estrogens and control pills isoniazid ketoconazole NSAIDS, medicines for pain and inflammation, like ibuprofen or naproxen phenytoin rifampin toxoids vaccines warfarin What if I miss a dose? If you miss a dose, take it as soon as you can. If it is almost time for your next dose, talk to your doctor or health medicare interviewer. You may need to miss a dose or take an extra dose. Do not take double or extra doses without advice. Where should I keep my medicine? Keep out of the reach of children. Store at room temperature between 15 and 30 degrees C (59 and 86 degrees F). Protect from light. Keep container tightly closed. Throw away any unused medicine after the expiration date. What should I tell my health care provider before I take this medicine? They need to know if you have any of these conditions: [place]'s syndrome diabetes glaucoma heart disease high blood pressure infection (especially a virus infection such as chickenpox, cold sores, or herpes) kidney disease liver disease mental illness myasthenia gravis osteoporosis seizures stomach or intestine problems thyroid disease an unusual or allergic reaction to lactose, prednisone, other medicines, foods, dyes, or preservatives or trying to get breast-feeding What should I watch for while using this medicine? Visit your doctor or health medicare interviewer for regular checks on your progress. If you are taking this medicine over a prolonged period, carry an identification card with your name and address, the type and dose of your medicine, and your doctor's name and address. This medicine may increase your risk of getting an infection. Tell your doctor or health medicare interviewer if you are around anyone with measles or chickenpox, or if you develop sores or blisters that do not heal properly. If you are going to have surgery, tell your doctor or health medicare interviewer that you have taken this medicine within the last twelve months. Ask your doctor or health medicare interviewer about your diet. You may need to lower the amount of salt you eat. This medicine may affect blood sugar levels. If you have diabetes, check with your doctor or health medicare interviewer before you change your diet or the dose of your diabetic medicine. Famotidine Oral tablet What is this medicine? FAMOTIDINE (fa CM hendrix) is a type of antihistamine that blocks the release of stomach acid. It is used to treat stomach or intestinal ulcers. It can also relieve heartburn from acid reflux. How should I use this medicine? Take this medicine by mouth with a glass of water. Follow the directions on the prescription label. If you only take this medicine once a day, take it at bedtime. Take your doses at regular intervals. Do not take your medicine more often than directed. Talk to your director social service regarding the use of this medicine in children. Special care may be needed. What side effects may I notice from receiving this medicine? Side effects that you should report to your doctor or health medicare interviewer as soon as possible: agitation, nervousness confusion hallucinations skin rash, itching Side effects that usually do not require medical attention (report to your doctor or health medicare interviewer if they continue or are bothersome): constipation diarrhea dizziness headache What may interact with this medicine? delavirdine itraconazole ketoconazole What if I miss a dose? If you miss a dose, take it as soon as you can. If it is almost time for your next dose, take only that dose. Do not take double or extra doses. Where should I keep my medicine? Keep out of the reach of children. Store at room temperature between 15 and 30 degrees C (59 and 86 degrees F). Do not freeze. Throw away any unused medicine after the expiration date. What should I tell my health care provider before I take this medicine? They need to know if you have any of these conditions: kidney or liver disease trouble swallowing an unusual or allergic reaction to famotidine, other medicines, foods, dyes, or preservatives or trying to get breast-feeding What should I watch for while using this medicine? Tell your doctor or health medicare interviewer if your condition does not start to get better or if it gets worse. Finish the full course of tablets prescribed, even if you feel better. Do not take with aspirin, ibuprofen or other antiinflammatory medicines. These can make your condition worse. Do not smoke cigarettes or drink alcohol. These cause irritation in your stomach and can increase the time it will take for ulcers to heal. If you get black, tarry stools or vomit up what looks like coffee grounds, call your doctor or health medicare interviewer at once. You may have a bleeding ulcer. You have been given the following additional information: Allergic Reaction, Other (General) Fexofenadine Hydrochloride Oral tablet Hydroxyzine Pamoate Oral capsule Prednisone Oral tablet Famotidine Oral tablet (Electronically signed by Stephanie Moe A.R.N.P. 10/10/2016 21:37)
--- NOTE | 2016-10-10 21:37 | ED DISCHARGE INSTRUCTIONS ---
Patient: MAKSIM MAR General Instructions [facility] VisitID: [id number] [address] [place] [address] 76y, F Registration Date/Time: 10/10/2016 Generalized pruritus of undetermined cause. INSTRUCTIONS Warnings: GENERAL WARNINGS: Return or contact your physician immediately if your condition worsens or changes unexpectedly, if not improving as expected, or if other problems arise. Specifically return if problem worsens. Prescription Medications: Sofy 180 mg tablets: take 1 orally daily for 10 days. Dispense ten (10). No refills. Atarax 50 mg: Take 1 orally every 6 hours as needed for itching. Dispense twenty (20). No refills. Substitution is permissible. Prednisone 20 mg: take 3 orally every day for 10 days. Dispense sufficient quantity. No refills. Pepcid 40 mg RPD: take 1 orally at bedtime for 10 days. Dispense ten (10). No refills. Follow-up: Follow up with your doctor in about two days even if well. Call for an appointment. Summary of care provided to patient. Understanding of the discharge instructions verbalized by patient. ADDITIONAL INFORMATION Allergic Reaction,Generalized [Other] You are having an allergic reaction. This may cause an itchy rash, dizziness, fainting, trouble breathing or swallowing, and swelling of the face or other parts of the body. This can be caused by exposure to something in your surroundings that you have become sensitive to. This could be due to medicine or food. This could also be due to something you put on your skin or in your hair or something in the air. Often it is not possible to find out exactly what has caused your reaction. The goal of today's treatment is to relieve symptoms. The rash will usually fade over several days, but can sometimes last up to two weeks. Home Care: 1) If you know what you are allergic to, avoid it because future reactions could be worse than this one. 2) Avoid tight clothing and anything that heats up your skin (hot showers/baths, direct sunlight) since heat will make itching worse. 3) An ice pack will relieve local areas of intense itching and redness. Lanacaine cream or Solarcaine spray (or other product containing "benzocaine", available without a prescription) will reduce the itching. 4) Oral Benadryl (diphenhydramine) is an antihistamine available at drug and grocery stores. Unless a prescription antihistamine was given, Benadryl may be used to reduce itching if large areas of the skin are involved. Use lower doses during the daytime and higher doses at bedtime since the drug may make you sleepy. [NOTE: Do not use Benadryl if you have glaucoma or if you are a man with trouble urinating due to an enlarged prostate.] Claritin (loratidine) is an antihistamine that causes less drowsiness and is a good alternative for daytime use. Follow Up Follow Up with your doctor or this facility in two days if your symptoms do not continue to improve. If you had a severe reaction today, or if you have had several mild-moderate allergic reactions in the past, ask your doctor about allergy testing to find out what you are allergic to. If your reaction included dizziness, fainting or trouble breathing or swallowing, ask your doctor about carrying an Allergy Kit (injectable epinephrine) for home use. Get Prompt Medical Attention if any of the following occur: -- Trouble breathing or swallowing -- New or worse swelling in the face, eyelids, lips, mouth, tongue or throat -- Dizziness, weakness or fainting Fexofenadine Hydrochloride Oral tablet What is this medicine? FEXOFENADINE (fex oh FEN a simeon) is an antihistamine. This medicine is used to treat or prevent symptoms of allergies. It is also used to help reduce itchy skin rash and hives. How should I use this medicine? Take this medicine by mouth with a full glass of water. Follow the directions on the prescription label. You may take this medicine with food or on an empty stomach. Take your medicine at regular intervals. Do not take it more often than directed. You may need to take this medicine for several days before your symptoms improve. Talk to your geothermal hvac technician regarding the use of this medicine in children. While this drug may be prescribed for children as young as 6 years old for selected conditions, precautions do apply. What side effects may I notice from receiving this medicine? Side effects that you should report to your doctor or health childcare worker as soon as possible: allergic reactions like skin rash, itching or hives, swelling of the face, lips, or tongue breathing problems chest pain fast heartbeat infection or fever Side effects that usually do not require medical attention (report to your doctor or health childcare worker if they continue or are bothersome): cough drowsiness dry or irritated nose, mouth, or throat headache menstrual changes pain stomach upset, nausea What may interact with this medicine? antacids erythromycin grapefruit, apple, or orange juice ketoconazole magnesium-containing products What if I miss a dose? If you miss a dose, take it as soon as you can. If it is almost time for your next dose, take only that dose. Do not take double or extra doses. Where should I keep my medicine? Keep out of the reach of children. Store at room temperature between 20 and 25 degrees C (68 and 77degrees F). Protect from moisture. Throw away any unused medicine after the expiration date. What should I tell my health care provider before I take this medicine? They need to know if you have any of these conditions: kidney disease an unusual or allergic reaction to fexofenadine, terfenadine, other medicines, foods, dyes, or preservatives or trying to get breast-feeding What should I watch for while using this medicine? Visit your doctor or health childcare worker for regular checks on your health. Tell your doctor or healthcare professional if your symptoms do not start to get better or if they get worse. Hydroxyzine Pamoate Oral capsule What is this medicine? HYDROXYZINE (neisha DROX i zeen) is an antihistamine. This medicine is used to treat allergy symptoms. It is also used to treat anxiety and tension. This medicine can be used with other medicines to induce sleep before surgery. How should I use this medicine? Take this medicine by mouth with a full glass of water. Follow the directions on the prescription label. You may take this medicine with food or on an empty stomach. Take your medicine at regular intervals. Do not take your medicine more often than directed. Talk to your geothermal hvac technician regarding the use of this medicine in children. Special care may be needed. While this drug may be prescribed for children as young as 6 years of age for selected conditions, precautions do apply. Patients over 65 years old may have a stronger reaction and need a smaller dose. What side effects may I notice from receiving this medicine? Side effects that you should report to your doctor or health childcare worker as soon as possible: fast or irregular heartbeat difficulty passing urine seizures slurred speech or confusion tremor Side effects that usually do not require medical attention (report to your doctor or health childcare worker if they continue or are bothersome): constipation drowsiness fatigue headache stomach upset What may interact with this medicine? alcohol barbiturate medicines for sleep or seizures medicines for colds, allergies medicines for depression, anxiety, or emotional disturbances medicines for pain medicines for sleep muscle relaxants What if I miss a dose? If you miss a dose, take it as soon as you can. If it is almost time for your next dose, take only that dose. Do not take double or extra doses. Where should I keep my medicine? Keep out of the reach of children. Store at room temperature between 15 and 30 degrees C (59 and 86 degrees F). Keep container tightly closed. Throw away any unused medicine after the expiration date. What should I tell my health care provider before I take this medicine? They need to know if you have any of these conditions: any chronic illness difficulty passing urine glaucoma heart disease kidney disease liver disease lung disease an unusual or allergic reaction to hydroxyzine, cetirizine, other medicines, foods, dyes, or preservatives or trying to get breast-feeding What should I watch for while using this medicine? Tell your doctor or health childcare worker if your symptoms do not improve. You may get drowsy or dizzy. Do not drive, use machinery, or do anything that needs mental alertness until you know how this medicine affects you. Do not stand or sit up quickly, especially if you are an older patient. This reduces the risk of dizzy or fainting spells. Alcohol may interfere with the effect of this medicine. Avoid alcoholic drinks. Your mouth may get dry. Chewing sugarless gum or sucking hard candy, and drinking plenty of water may help. Contact your doctor if the problem does not go away or is severe. This medicine may cause dry eyes and blurred vision. If you wear contact lenses you may feel some discomfort. Lubricating drops may help. See your eye doctor if the problem does not go away or is severe. If you are receiving skin tests for allergies, tell your doctor you are using this medicine. Prednisone Oral tablet What is this medicine? PREDNISONE (PRED ni sone) is a corticosteroid. It is commonly used to treat inflammation of the skin, joints, lungs, and other organs. Common conditions treated include asthma, allergies, and arthritis. It is also used for other conditions, such as blood disorders and diseases of the adrenal glands. How should I use this medicine? Take this medicine by mouth with a glass of water. Follow the directions on the prescription label. Take this medicine with food. If you are taking this medicine once a day, take it in the morning. Do not take more medicine than you are told to take. Do not suddenly stop taking your medicine because you may develop a severe reaction. Your doctor will tell you how much medicine to take. If your doctor wants you to stop the medicine, the dose may be slowly lowered over time to avoid any side effects. Talk to your geothermal hvac technician regarding the use of this medicine in children. Special care may be needed. What side effects may I notice from receiving this medicine? Side effects that you should report to your doctor or health childcare worker as soon as possible: allergic reactions like skin rash, itching or hives, swelling of the face, lips, or tongue changes in emotions or moods changes in vision depressed mood eye pain fever or chills, cough, sore throat, pain or difficulty passing urine increased thirst swelling of ankles, feet Side effects that usually do not require medical attention (report to your doctor or health childcare worker if they continue or are bothersome): confusion, excitement, restlessness headache nausea, vomiting skin problems, acne, thin and shiny skin trouble sleeping weight gain What may interact with this medicine? Do not take this medicine with any of the following medications: metyrapone mifepristone This medicine may also interact with the following medications: aminoglutethimide amphotericin B aspirin and aspirin-like medicines barbiturates certain medicines for diabetes, like glipizide or glyburide cholestyramine cholinesterase inhibitors cyclosporine digoxin diuretics ephedrine female hormones, like estrogens and control pills isoniazid ketoconazole NSAIDS, medicines for pain and inflammation, like ibuprofen or naproxen phenytoin rifampin toxoids vaccines warfarin What if I miss a dose? If you miss a dose, take it as soon as you can. If it is almost time for your next dose, talk to your doctor or health childcare worker. You may need to miss a dose or take an extra dose. Do not take double or extra doses without advice. Where should I keep my medicine? Keep out of the reach of children. Store at room temperature between 15 and 30 degrees C (59 and 86 degrees F). Protect from light. Keep container tightly closed. Throw away any unused medicine after the expiration date. What should I tell my health care provider before I take this medicine? They need to know if you have any of these conditions: Grey Eagle's syndrome diabetes glaucoma heart disease high blood pressure infection (especially a virus infection such as chickenpox, cold sores, or herpes) kidney disease liver disease mental illness myasthenia gravis osteoporosis seizures stomach or intestine problems thyroid disease an unusual or allergic reaction to lactose, prednisone, other medicines, foods, dyes, or preservatives or trying to get breast-feeding What should I watch for while using this medicine? Visit your doctor or health childcare worker for regular checks on your progress. If you are taking this medicine over a prolonged period, carry an identification card with your name and address, the type and dose of your medicine, and your doctor's name and address. This medicine may increase your risk of getting an infection. Tell your doctor or health childcare worker if you are around anyone with measles or chickenpox, or if you develop sores or blisters that do not heal properly. If you are going to have surgery, tell your doctor or health childcare worker that you have taken this medicine within the last twelve months. Ask your doctor or health childcare worker about your diet. You may need to lower the amount of salt you eat. This medicine may affect blood sugar levels. If you have diabetes, check with your doctor or health childcare worker before you change your diet or the dose of your diabetic medicine. Famotidine Oral tablet What is this medicine? FAMOTIDINE (fa CM hendrix) is a type of antihistamine that blocks the release of stomach acid. It is used to treat stomach or intestinal ulcers. It can also relieve heartburn from acid reflux. How should I use this medicine? Take this medicine by mouth with a glass of water. Follow the directions on the prescription label. If you only take this medicine once a day, take it at bedtime. Take your doses at regular intervals. Do not take your medicine more often than directed. Talk to your geothermal hvac technician regarding the use of this medicine in children. Special care may be needed. What side effects may I notice from receiving this medicine? Side effects that you should report to your doctor or health childcare worker as soon as possible: agitation, nervousness confusion hallucinations skin rash, itching Side effects that usually do not require medical attention (report to your doctor or health childcare worker if they continue or are bothersome): constipation diarrhea dizziness headache What may interact with this medicine? delavirdine itraconazole ketoconazole What if I miss a dose? If you miss a dose, take it as soon as you can. If it is almost time for your next dose, take only that dose. Do not take double or extra doses. Where should I keep my medicine? Keep out of the reach of children. Store at room temperature between 15 and 30 degrees C (59 and 86 degrees F). Do not freeze. Throw away any unused medicine after the expiration date. What should I tell my health care provider before I take this medicine? They need to know if you have any of these conditions: kidney or liver disease trouble swallowing an unusual or allergic reaction to famotidine, other medicines, foods, dyes, or preservatives or trying to get breast-feeding What should I watch for while using this medicine? Tell your doctor or health childcare worker if your condition does not start to get better or if it gets worse. Finish the full course of tablets prescribed, even if you feel better. Do not take with aspirin, ibuprofen or other antiinflammatory medicines. These can make your condition worse. Do not smoke cigarettes or drink alcohol. These cause irritation in your stomach and can increase the time it will take for ulcers to heal. If you get black, tarry stools or vomit up what looks like coffee grounds, call your doctor or health childcare worker at once. You may have a bleeding ulcer. You have been given the following additional information: Allergic Reaction, Other (General) Fexofenadine Hydrochloride Oral tablet Hydroxyzine Pamoate Oral capsule Prednisone Oral tablet Famotidine Oral tablet (Electronically signed by Stephanie Moe A.R.N.P. 10/10/2016 21:37)
--- NOTE | 2016-10-10 21:38 | ED MAR SUMMARY ---
..... Medication Administration Record [facility] [address] [place] [address] Patient: MAKSIM MAR Visit ID: [id number] 76y, F Weight: 92.9 kg Height/Length: 67 in BMI: 32.1 ALLERGIES: No Known Drug Allergy Given 18:51 10/10/2016 Jennifer Medina R.N. Medication Administered: DECADRON [IM] (DEXAMETHASONE SODIUM PHOSPHATE), Dose: 8 mg IM. Medication Ordered: Decadron IM 8 mg (NOW).
--- NOTE | 2016-10-10 21:38 | ED MAR SUMMARY ---
..... Medication Administration Record [facility] [address] [place] [address] Patient: MAKSIM MAR Visit ID: [id number] 76y, F Weight: 92.9 kg Height/Length: 67 in BMI: 32.1 ALLERGIES: No Known Drug Allergy Given 18:51 10/10/2016 Jennifer Medina R.N. Medication Administered: DECADRON [IM] (DEXAMETHASONE SODIUM PHOSPHATE), Dose: 8 mg IM. Medication Ordered: Decadron IM 8 mg (NOW).
--- NOTE | 2016-10-10 21:38 | ED MED RECONCILIATION SUMMARY ---
Patient: MAKSIM MAR Medication Reconciliation Report [facility] VisitID: [id number] [address] [place] [address] 76y, F Registration Date/Time: 10/10/2016 Weight: 92.9 kg Height/Length: 67 in. BMI: 32.1 ALLERGIES: No Known Drug Allergy The patient's Home Medications are listed below: THE FOLLOWING MEDICATIONS NEED TO BE RECONCILED: Advair Diskus Inhalation Benazepril HCl Oral (40 mg) Doxazosin Mesylate Oral (8 mg) Hydrochlorothiazide Oral (25 mg) Ibuprofen Oral (800 mg) 1 tablet, 3x a day OxyCODONE HCl Oral (5 mg) Sildenafil Citrate Oral (20 mg) Vicodin Oral 10 mg, PRN The source(s) of the original Home Medication information: Not obtained. The following Medications were given to the patient in the Emergency Department: Decadron [IM] IM 8 mg, administered: 10/10/2016 6:51:00 PM The following Medications were prescribed to the patient: Sofy 180 mg tablets: take 1 orally daily for 10 days. Dispense ten (10). No refills. -- Stephanie Moe A.R.N.P. Atarax 50 mg: Take 1 orally every 6 hours as needed for itching. Dispense twenty (20). No refills. Substitution is permissible. -- Stephanie Moe A.R.N.P. Prednisone 20 mg: take 3 orally every day for 10 days. Dispense sufficient quantity. No refills. -- Stephanie Moe A.R.N.P. Pepcid 40 mg RPD: take 1 orally at bedtime for 10 days. Dispense ten (10). No refills. -- Stephanie Moe A.R.N.P.
--- NOTE | 2016-10-10 21:38 | ED MED RECONCILIATION SUMMARY ---
Patient: MAKSIM MAR Medication Reconciliation Report [facility] VisitID: [id number] [address] [place] [address] 76y, F Registration Date/Time: 10/10/2016 Weight: 92.9 kg Height/Length: 67 in. BMI: 32.1 ALLERGIES: No Known Drug Allergy The patient's Home Medications are listed below: THE FOLLOWING MEDICATIONS NEED TO BE RECONCILED: Advair Diskus Inhalation Benazepril HCl Oral (40 mg) Doxazosin Mesylate Oral (8 mg) Hydrochlorothiazide Oral (25 mg) Ibuprofen Oral (800 mg) 1 tablet, 3x a day OxyCODONE HCl Oral (5 mg) Sildenafil Citrate Oral (20 mg) Vicodin Oral 10 mg, PRN The source(s) of the original Home Medication information: Not obtained. The following Medications were given to the patient in the Emergency Department: Decadron [IM] IM 8 mg, administered: 10/10/2016 6:51:00 PM The following Medications were prescribed to the patient: Sofy 180 mg tablets: take 1 orally daily for 10 days. Dispense ten (10). No refills. -- Stephanie Moe A.R.N.P. Atarax 50 mg: Take 1 orally every 6 hours as needed for itching. Dispense twenty (20). No refills. Substitution is permissible. -- Stephanie Moe A.R.N.P. Prednisone 20 mg: take 3 orally every day for 10 days. Dispense sufficient quantity. No refills. -- Stephanie Moe A.R.N.P. Pepcid 40 mg RPD: take 1 orally at bedtime for 10 days. Dispense ten (10). No refills. -- Stephanie Moe A.R.N.P.
== END 2016-10-10 19:00 | disposition home or self-care (01) ==
LOC: ED SRH 18:15
DX: L29.9 Pruritus, unspecified (principal); I10 Essential (primary) hypertension; Z79.891 Long term (current) use of opiate analgesic; Z79.899 Other long term (current) drug therapy